=== PATIENT | male | born 1965 | race Caucasian/White ===

== ENCOUNTER 2024-05-15 09:25 | Emergency (ER) | payer OTHER, SELFPAY ==
[2024-05-15 09:30] VITALS: BP 130/80; PULSE 77; RESP 18; TEMP 36.2; O2SAT 99; BMI 20.5
--- NOTE | 2024-05-15 09:50 | CRLHL7_ITS ---
For Patients: As a result of the 21st Century Cures Act, medical imaging exams and procedure reports are released immediately into your electronic medical record. You may view this report before your referring provider. If you have questions, please contact your health care provider. INDICATION: Hematuria COMPARISON: None TECHNIQUE: CT examination of the abdomen and pelvis was performed before and after the uneventful intravenous administration of 100 cc of Isovue 370. Thin section axial images were obtained from the lung bases through the pubic symphysis. Oral contrast was not administered. Sagittal and coronal reformatted imaging was performed. The study was performed as a 2 phase examination. One series was performed without contrast and another approximate 11 minute delay as per hematuria protocol Please note that all CT scans at this facility use dose modulation, iterative reconstruction, and/or weight-based dosing when appropriate to reduce radiation dose to as low as reasonably achievable. FINDINGS: LUNG BASES: The lung bases as visualized appear normal.The heart size is normal at the lung bases. LIVER/BILIARY SYSTEM:The liver is normal in size and configuration. There is no focal mass and there is no intra- or extra hepatic biliary ductal dilatation.The gall bladder appears normal. ADRENALS: Normal KIDNEYS, URETERS and BLADDER:No calcified calculus. No abnormal dilation of the ureters or bladder. No renal cortical mass visible after contrast administration. No filling defects identified within the upper tracts or ureters as opacified on this exam. There is minimal opacification of the bladder. As visualized, there is no mass. SPLEEN:Normal appearance. PANCREAS: There is a fairly well-circumscribed low-density pancreatic had mass measuring 1.5 centimeters. This does not apparently enhance. These are usually benign but are best stratified in terms of risk and regarding follow-up recommendations with a pancreatic mass protocol CT or pancreatic mass protocol MRI with gadolinium. RETROPERITONEUM and MESENTERY: There is no mass, adenopathy or aortic aneurysm. Atherosclerotic vascular calcification. Diffuse vascular ectasia but no angélica aneurysm. GASTROINTESTINAL SYSTEM: There is no evidence of diverticulitis, colitis, mechanical obstruction, or appendicitis. The small bowel as visualized appears normal.Fecal retention PELVIS: No mass, adenopathy or free fluid.Moderately enlarged prostate OSSEOUS STRUCTURES and ABDOMINAL WALL: There is an age-appropriate appearance of the osseous structures.No significant abdominal wall defect. OTHER: No free fluid or free air. IMPRESSION: 1. No calcified calculus. No evidence of current or recent obstructive uropathy. No mass identified within the renal cortex on either side. No abnormal filling defect identified within the upper tracts, ureters or bladder is partially opacified. The exact cause of the patient`s hematuria is not visible on this exam and appropriate follow-up evaluation is advised. 2. Moderately enlarged prostate 3. Low-density pancreatic mass statistically most likely benign. These are best stratified in terms of risk management and follow-up by multiphase pancreatic mass CT or multiphase pancreatic mass protocol MRI. Either the study should be considered. Please note that all CT scans at this facility use dose modulation, iterative reconstruction, and/or weight-based dosing when appropriate to reduce radiation dose to as low as reasonably achievable. Dictated by Alex Dong MD @ 05/15/2024 12:00:17 PM (Electronically Signed)
[2024-05-15 09:59] LABS: Appearance Urine Cloudy (Clear); Bilirubin Urine 1+ (Negative); Blood Urine 3+ (Negative); Color Urine Orange (Yellow); Glucose Urine Negative (Negative); Ketones Urine Trace (Negative); Leukocyte Esterase Urine Negative (Negative); Nitrite Urine Negative (Negative); Protein Urine 3+ (Negative); Specific Gravity Urine >= 1.030 (1.000-1.030); Urobilinogen Urine 0.2 (0.2-1.0); pH Urine 5.5 (5.0-8.5)
[2024-05-15 10:11] LABS: Basophils Percent Auto 0.7 % (0.0-3.0); Eosinophils Percent Auto 1.7 % (0.0-7.0); Hematocrit 42.9 % (37.0-53.0); Hemoglobin* 14.3 gm/dL (13.5-17.5); Lymphocytes Percent Auto 20.8 % (20-44); Mean Corpuscular HGB Conc 33 gm/dL (32-36); Mean Corpuscular Hemoglobin 33 pg (26-34); Mean Corpuscular Volume 100 fL (80-100); Monocytes Percent Auto 8.1 % (0.0-11.0); Neutrophils Percent Auto 68.7 % (42.0-72.0); Platelet Count* 142 K/uL (140-440); RDW Coefficient of Variation % 12.5 % (11.5-15.5); Red Blood Count 4.29 m/uL (4.30-5.90); White Blood Count* 4.18 K/uL (4.50-11.00)
[2024-05-15 10:12] LABS: Slide Review Reflex No
[2024-05-15 10:12] LABS: Amorphous Sediment Urine Many; Bacteria Urine Many; RBC Urine >100 (0-2); Squamous Epithelial Cell Urine Few (None-Few)
--- OUTSIDE RECORDS SUMMARY | 2024-05-15 10:15 | XMS_ITS | Clinical Summary ---
Author Organization [facility] Address [place], [place] [address] Care Team Providers Care Fine Craft Artist Name Role Phone Jesus Alberto Johnson MD Primary Care Provider [phone] Allergies Active Allergy Reactions Criticality Noted Date Comments Homeopathic Products 04/15/2008 Medications Medication Sig Dispensed Refills Start Date End Date Status desoximetasone 0.25% topical (Topicort) 0.25 % ointmentIndications: Chronic eczema Apply topically to affected area(s) two times daily. 60 g 1 02/17/2023 Active durable medical equipment (DME)Indications:Pes planus of both feet,Plantar fasciitis, bilateral Orthotics for home use. Length of need 99 1 Each 03/31/2023 Active azithromycin (Zithromax Z-Blanco) 250 mg tabletIndications:Co ugh, unspecified type Take 500 mg (2 tabs) by mouth on day 1, then 250 mg (1 tab) daily for days 2-5. 6 Tablet 07/11/2023 Active benzonatate (TESSALON) 200 mg capsuleIndications:C ough, unspecified type Take 1 Capsule (200 mg) by mouth 3 times daily if needed for Cough. 30 Capsule 07/11/2023 Active Active Problems Problem Noted Date Diagnosed Date Routine adult health maintenance 12/05/2015 Overview (12/05/2015): Colonoscopy 11/2015 hyperplastic polyp repeat in 10 years Vitamin D deficiency 11/26/2015 Encounters Date Type Department Care Team Description 05/15/2024 Nurse Triage [facility] [address] [place] [address] Jesus Alberto Johnson MD Urinary Problem from Last 3 Months Immunizations Name Administration Dates Next Due COVID-19 vaccine (Moderna 10 0mcg/0.5mL) PF, MDV 12/25/2020,11/27/2020 Influenza A (H1N1), Inactiva dianna (Age >=3 Years) 07/05/2009 Influenza, IIV3 (Age >=3 years) 05/30/2011 Influenza, IIV4 05/29/2015,06/03/2014 Influenza, IIV4 (=>6mos) MDV 05/16/2020,07/05/20 19,05/27/2016 Influenza, Injectable, Mdck, Quadrivalent, W/preservative 06/09/2021 Influenza,LAIV4 Live Intranasal (Flumist) 2017,05/29/2010 Tdap 06/19/2007 Family History Medical History Relation Name Comments Heart Disease Maternal Grandmother heart trouble Other Maternal Grandmother COPD Cancer Paternal Grandfather unknown Cancer Paternal Grandmother unknown Relation Name Status Comments Maternal Grandmother Paternal Grandfather Paternal Grandmother Social History Tobacco Use Types Packs/Day Years Used Date Smoking Tobacco: Never Smokeless Tobacco: Never Tobacco Cessation:Counseling Given: Yes Alcohol Use Standard Drinks/Week Comments No 0 (1 standard drink = 0.6 oz pur e alcohol) PHQ-2 Answer Date Recorded PHQ-2 TOTAL SCORE 0 02/16/2021 Social Connections Answer Date Recorded Frequency of Communication with Friends and Fami ly 0 07/11/2023 Financial Resource Strain Answer Date R ecorded Difficulty of Paying Living Expenses 3 07/11/2023 Difficulty of Paying Living Expenses Not on file 07/11/2023 Food Insecurity Answer Date Recorded Worried About Running Out of Food in the Last Ye ar 1 07/11/2023 Transportation Needs Answer Date Record ed Lack of Transportation (Medical) 1 07/11/2023 Housing Stability Answer Date Recorded Unable to Pay for Housing in the Last Year 1 07/11/2023 Sex and Gender Information Value Date Recorded Sex Assigned at Not on file Gender Identity Not on file Sexual Orientation Not on file Obstetrics History Last Filed Vital Signs Vital Sign Reading Time Taken Comments Blood Pressure 130/73 07/11/2023 12:09 PM RECORDER [facility]OSPECTING Pulse 68 07/11/2023 12:09 PM RECORDER [employer]RAV[employer] PROSPECTING Temperature 36.8 ??C (98.2 ??F) 07/11/2023 12:[address] Respiratory Rate - - Oxygen Saturation 99% 07/11/2023 12:09 PM REC[employer] PROSPECTING Inhaled Oxygen Concentration - - Weight 71.8 kg (158 lb 3.2 oz) 07/11/2023 12:09 PM RECORDER [employer] PROSPECTING Height 188 cm (6' 2) 03/31/2023 11:00 AM CDT Body Mass Index 20.31 03/31/2023 11:00 AM CDT Plan of Treatment Health Maintenance Due Date Last Done Comments HIV for age 15-65 1978 Hepatitis C screening for age 18-79 1981 Zoster (shingles) series for age 50+ (1 of 2) 2013 Lipids for age 45-75 08/09/2016 08/09/2011 Tetanus booster 06/19/2017 06/19/2007 Depression screening for age 12+ 02/16/2022 02/16/2021, 11/26/2015 BMI (ht and wt on same day) for age 18+ 03/31/2024 03/31/2023, 02/16/2021, 02/03/2019, Additional history exists COVID-19 vaccine series (2022- season) 2024 04/12/2022, 07/30/2021, 12/25/2020, Additional history exists Influenza for age 50-64 04/29/2024 06/09/20, 05/16/2020, 07/05/2019, Additional history exists Colonoscopy through age 75 12/02/2025 12/03/2015 Tdap Completed 06/19/2007 Pneumococcal series for age 6-64 Aged Out No longer eligible based on patient's age to complete this topic Procedures Procedure Name Priority Date/Time Associated Diagnosis Comments LIPID PANEL W REFLEX MEASURED LDL Routine 08/09/2011 2:54 PM RECORDER [facility] PROSPECTING Screening for lipoid disorders from Last 3 Months or Most Recently Relevant to Health Maintenance Results * LIPID PANEL W REFLEX MEASURED LDL (08/09/2011 2:54 PM RECORDER GRAVITY PROSPECTING) CHOLESTEROL,TOTAL 154 110 - 199 mg/dL [facility] TRIGLYCERIDES 61 <150 mg/dL [facility] HDL CHOLESTEROL 61 >40 mg/dL [facility] CHOL/HDL RATIO 2.[address] [facility] LDL CHOLESTEROL 81 <131 mg/dL [facility] PATIENT STATUS Fasting [facility] Blood specimen (specimen) BLOOD SPECIMEN / Unknown 08/09/2011 2:54 PM RECORDER [facility]RAVITY PROSPECTING 08/09/2011 2:49 PM RECORDER GRAVITY PROSPECTING Jesus Alberto Johnson MD CHEMISTRY [facility] [address] [place] [address] from Last 3 Months or Most Recently Relevant to Health Maintenance Care Teams Fine Craft Artist Relationship Specialty Start Date End Date Jesus Alberto Johnson MD [address] [place] [address] PCP - General Family Practice 10/14/11
[2024-05-15 10:23] LABS: Chloride* 103 mmol/L (96-114)
[2024-05-15 10:24] LABS: Potassium* 3.7 mmol/L (3.6-5.1); Sodium* 139 mmol/L (135-149)
[2024-05-15 10:27] LABS: Anion Gap 9 mEq/L (7-15); Blood Urea Nitrogen* 18 mg/dL (7-30); Calcium* 9.1 mg/dL (8.4-10.6); Carbon Dioxide* 27 mmol/L (20-32); Creatinine* 0.9 mg/dL (0.5-1.5); Estimated Glomerular Filt Rate 98 ml/min; Glucose* 100 mg/dL (60-115)
--- NOTE | 2024-05-15 10:33 | ED_ITS ---
HPI - General Adult General Chief complaint: Urogenital Problems, Male Stated complaint: Blood in urine Time Seen by Provider: 05/15/24 09:40 Source: patient Mode of arrival: ambulatory Limitations: no limitations History of Present Illness HPI narrative: 58-year-old male presenting today with hematuria. Patient noticed that for the last 2 days he has had some discomfort with urination and this sensation of incr eased urinary frequency. He states that today he went for a run and he had to go to the bathroom during his run, notice that was pure blood. He denies feeling lightheaded or dizzy. He denies abdominal pain. He denies fevers or chills. No flank pain. Patient denies any trauma to the abdomen or flank. Patient denies any unintentional weight loss, night sweats, changes in his appetite or changes in his sleep patterns. Past medical history is benign, he takes no medications. Denies ever having surgery. Denies tobacco use. Family history is significant for kidney disease-his father needed a kidney transplant when he was in his 80s, unclear why. Related Data Previous Rx's ?Medication ?Instructions ?Recorded nitrofurantoin 100 mg PO BID 7 days #14 caps 05/15/24 monohydrate/macrocrystals 100 mg capsule (Macrobid) Allergies Allergy/AdvReac Type Severity Reaction Status Date / Time HAYFEVER Allergy Mild Chills Uncoded 09/20/22 10:58 Review of Systems Status of ROS: Reports: 10 or more systems reviewed and unremarkable except as noted in History and below [facility] Social History Non-prescribed substance use: denies use Exam Narrative: Exam Narrative: Well-nourished well-developed patient in no acute distress. Alert and oriented. Answers questions appropriately. Mood and affect are appropriate. Thoughts are goal oriented and rational. No tangential or magical thinking noted. Patient speaks in full sentences without needing to catch his breath. Patient is a little bit anxious. HEENT: Normocephalic atraumatic. Pupils are equally round reactive to light. Extraocular muscles are intact. Conjunctivae are moist without any icterus noted. Moist mucous membranes. Posterior pharynx is normal. Neck is soft without any lymphadenopathy or thyromegaly. No masses are appreciated. Cardiovascular: Heart is regular rate and rhythm S1 and S2 are present without any murmurs. Lungs: Clear to auscultation bilaterally no wheezes rhonchi or rales are appreciated. Patient takes deep breaths without any discomfort. Abdomen: Soft and nontender nondistended with normal bowel sounds. No guarding or rebound. No masses or organomegaly appreciated. No CVA tenderness. Extremities: Bilateral lower extremities are without edema. Skin: Well perfused without any obvious rashes. Const: Vital Signs, click to edit/add: Vital Signs - 24 hr 05/15/24 09:30 Temperature 97.1 F L Pulse Rate [Right Pulse Oximeter] 77 Respiratory Rate 18 Blood Pressure [Ri ght Upper Arm] 130/80 Pulse Oximetry 99 Oxygen Delivery Me thod Room Air Course Course ED Course: CBC and BMP were unremarkable. UA showed 3+ blood, greater than 100 rbc's, 10-25 wbc's, many bacteria. CT urogram was done. Results pending. Patient requested to leave at this time. CT urogram results came back after patient left. I did call and leave a message regarding the results. Did recommend he follow-up with his primary care provider to discuss any further imaging regarding the pancreatic lesion. Vital Signs Vital signs: Initial Vital Signs Temperature 97.1 F L 05/15/24 09:30 Temperature Source Temporal Artery Scan 05/15/24 09:30 Pulse Rate 77 05/15/24 09:30 Respiratory Rate 18 05/15/24 09:30 Blood Pressure 130/80 05/15/24 09:30 Blood Pressure Mean 96 05/15/24 09:30 Blood Pressure Position Sitting 05/15/24 09:30 Pulse Oximetry 99 05/15/24 09:30 Oxygen Delivery Method Room Air 05/15/24 09:30 Vital Signs Temperature 97.1 F L 05/15/24 09:30 Pulse Rate 77 05/15/24 09:30 Respiratory Rate 18 05/15/24 09:30 Blood Pressure 130/80 05/15/24 09:30 Pulse Oximetry 99 05/15/24 09:30 Oxygen Delivery Method Room Air 05/15/24 09:30 Temperature 97.1 F L 05/15/24 09:30 Pulse Rate 77 05/15/24 09:30 Respiratory Rate 18 05/15/24 09:30 Blood Pressure 130/80 05/15/24 09:30 Pulse Oximetry 99 05/15/24 09:30 Oxygen Delivery Method Room Air 05/15/24 09:30 Medical Decision Making MDM Narrative Medical decision making narrative: 58-year-old male with hematuria probable UTI. CT urogram results pending at this time. Will treat with Macrobid b.i.d. for 7 days. Lab Data Lab results reviewed: Yes I reviewed the patient's lab results Labs: Lab Results 05/15/24 05/15/24 Range/Units 09:35 10:04 WBC 4.18 L (4.50-11.00) K/uL RBC 4.29 L (4.30-5.90) m/uL Hgb 14.3 (13.5-17.5) gm/dL Hct 42.9 (37.0-53.0) % MCV 100 (80-100) fL MCH 33 (26-34) pg MCHC 33 (32-36) gm/dL RDW Coeff of Chin 12.5 (11.5-15.5) % Plt Count 142 (140-440) K/uL Neut % (Auto) 68.7 (42.0-72.0) % Lymph % (Auto) 20.8 (20-44) % [place] % (Auto) 8.1 (0.0-11.0) % Eos % (Auto) 1.7 (0.0-7.0) % Baso % (Auto) 0.7 (0.0-3.0) % Neut # (Auto) 2.90 (1.7-7.0) K/uL Lymph # (Auto) 0.90 (0.90-2.90) K/uL [place] # (Auto) 0.30 (0.00-0.90) K/UL Eos # (Auto) 0.10 (0.00-0.50) K/uL Baso # (Auto) 0.00 (0.00-0.30) K/uL Abs Immat Gran (auto) 0.00 (0.00-0.30) K/uL Imm/Tot Granulo (auto) 0.0 % Sodium 139 (135-149) mmol/L Potassium 3.7 (3.6-5.1) mmol/L Chloride 103 (96-114) mmol/L Carbon Dioxide 27 (20-32) mmol/L Anion Gap 9 (7-15) mEq/L BUN 18 (7-30) mg/dL Creatinine 0.9 (0.5-1.5) mg/dL Estimated Creat Clear 89.60 Estimated GFR 98 ml/min Glucose 100 (60-115) mg/dL Calcium 9.1 (8.4-10.6) mg/dL Urine Color [place] A (Yellow) Urine Appearance Cloudy A (Clear) Urine pH 5.5 (5.0-8.5) Ur Specific [place] >= 1.030 (1.000-1.030) Urine Protein 3+ A (Negative) Urine Glucose (UA) Negative (Negative) Urine Ketones Trace A (Negative) Urine Blood 3+ A (Negative) Urine Nitrite Negative (Negative) Urine Bilirubin 1+ A (Negative) Urine Urobilinogen 0.2 (0.2-1.0) Ur Leukocyte Esterase Negative (Negative) Urine RBC >100 A (0-2) Urine WBC 10-25 A (0-5) Ur Squamous Epith Cells Few (None-Few) Amorphous Sediment Many A (None) Other Sediment (None) Urine Bacteria Many A (None) Imaging Data CT scan - abdomen: Attestation: I have reviewed the pertinent imaging results. Radiologist's impression: TECHNIQUE: CT examination of the abdomen and pelvis was performed before and after the uneventful intravenous administration of 100 cc of Isovue 370. Thin section axial images were obtained from the lung bases through the pubic symphysis. Oral contrast was not administered. Sagittal and coronal reformatted imaging was performed. The study was performed as a 2 phase examination. One series was performed without contrast and another approximate 11 minute delay as per hematuria protocol Please note that all CT scans at this facility use dose modulation, iterative reconstruction, and/or weight-based dosing when appropriate to reduce radiation dose to as low as reasonably achievable. FINDINGS: LUNG BASES: The lung bases as visualized appear normal.The heart size is normal at the lung bases. LIVER/BILIARY SYSTEM:The liver is normal in size and configuration. There is no focal mass and there is no intra- or extra hepatic biliary ductal dilatation.The gall bladder appears normal. ADRENALS: Normal KIDNEYS, URETERS and BLADDER:No calcified calculus. No abnormal dilation of the ureters or bladder. No renal cortical mass visible after contrast administration. No filling defects identified within the upper tracts or ureters as opacified on this exam. There is minimal opacification of the bladder. As visualized, there is no mass. SPLEEN:Normal appearance. PANCREAS: There is a fairly well-circumscribed low-density pancreatic had mass measuring 1.5 centimeters. This does not apparently enhance. These are usually benign but are best stratified in terms of risk and regarding follow-up recommendations with a pancreatic mass protocol CT or pancreatic mass protocol MRI with gadolinium. RETROPERITONEUM and MESENTERY: There is no mass, adenopathy or aortic aneurysm. Atherosclerotic vascular calcification. Diffuse vascular ectasia but no angélica aneurysm. GASTROINTESTINAL SYSTEM: There is no evidence of diverticulitis, colitis, mechanical obstruction, or appendicitis. The small bowel as visualized appears normal.Fecal retention PELVIS: No mass, adenopathy or free fluid.Moderately enlarged prostate OSSEOUS STRUCTURES and ABDOMINAL WALL: There is an age-appropriate appearance of the osseous structures.No significant abdominal wall defect. OTHER: No free fluid or free air. IMPRESSION: 1. No calcified calculus. No evidence of current or recent obstructive uropathy. No mass identified within the renal cortex on either side. No abnormal filling defect identified within the upper tracts, ureters or bladder is partially opacified. The exact cause of the patient`s hematuria is not visible on this exam and appropriate follow-up evaluation is advised. 2. Moderately enlarged prostate 3. Low-density pancreatic mass statistically most likely benign. These are best stratified in terms of risk management and follow-up by multiphase pancreatic mass CT or multiphase pancreatic mass protocol MRI. Either the study should be considered. Discharge Plan Discharge Clinical Impression: Urinary tract infection, Hematuria Patient Disposition: Home, Self-Care Condition: Stable Additional Instructions: Take all antibiotics as prescribed. If your symptoms do not clear up within the next 3-5 days, follow-up with your primary care provider. We will call you with results of your CT scan if something needs to be managed right away. Prescriptions: New nitrofurantoin monohyd/m-cryst [Macrobid] 100 mg capsule 100 mg PO BID 7 Days Qty: 14 0RF Rx Instructions: must administer with a meal/food Follow Up/Referrals: Chloe Jones MD [Primary Care Provider] - Stand Alone Forms: [employer] To Go Info Instructions
== END 2024-05-15 11:45 | disposition home or self-care (01) ==
PROVIDERS: Emergency Provider Family Medicine; PCP Internal Medicine
DX: N39.0 Urinary tract infection, site not specified (principal); R31.9 Hematuria, unspecified
CPT/HCPCS: 36415; 74178; 80048; 81001; 85025; 87086; 99284; Q9967